=== PATIENT | female | born 1945 | race Asian ===

== ENCOUNTER 2019-06-16 09:49 | Emergency (ER) | payer OTHER ==
[2019-06-16 09:56] VITALS: BP 152/76; PULSE 86; TEMP 98.3; BMI 27.8
--- NOTE | 2019-06-16 10:32 | PDOC ---
History of Present Illness - General Chief Complaint: Injury Stated Complaint: LT.KNEE PAIN/ FALL Time Seen by Provider: 06/16/19 09:52 History Source: Patient - History of Present Illness Occurred: reports: this morning Lower Extremity Pain Location: left: knee Method of Injury: Yes: fell Past History - Past Medical History Allergies/Adverse Reactions: Allergies Allergy/AdvReac Type Severity Reaction Status Date / Time No Known Allergies Allergy Verified 06/16/19 09:54 Home Medications: Ambulatory Orders Cholecalciferol (Vitamin D3) [Vitamin D3 -] 1,000 unit PO DAILY 04/10/15 Valsartan [Diovan] 320 mg PO DAILY #30 tablet 09/15/15 Atorvastatin Ca [Lipitor] 40 mg PO HS 06/11/16 Empagliflozin [Jardiance] 10 mg PO DAILY 06/11/16 Glipizide 5 mg PO DAILY 06/11/16 Sitagliptin Phosphate [Januvia] 100 mg PO BID 06/11/16 metFORMIN HCL [Metformin HCl] 500 mg PO BID 06/11/16 Aspirin [ASA -] 81 mg PO DAILY #30 tab.chew 06/12/16 Wheat Dextrin [Benefiber] 1 each PO BID #0 powd.pack 06/12/16 Acetaminophen [Tylenol -] 1,000 mg PO Q6H #30 tablet 06/16/19 Anemia: Yes Asthma: No Cancer: Yes (RECTUM) Cardiac Disorders: No CVA: No COPD: No CHF: No Dementia: No Diabetes: Yes GI Disorders: Yes (COLON CANCER) Disorders: No HTN: Yes Hypercholesterolemia: Yes Liver Disease: No Seizures: No Thyroid Disease: No - Surgical History Abdominal Surgery: Yes (colon resection) Appendectomy: No Cardiac Surgery: No Cholecystectomy: No GI Surgery: Yes (COLORECTAL) Lung Surgery: No Neurologic Surgery: No Orthopedic Surgery: No - Immunization History Immunization Up to Date: Yes - Psycho Social/Smoking Cessation Hx Smoking Status: No Smoking History: Never smoked Have you smoked in the past 12 months: No Number of Cigarettes Smoked Daily: 0 Information on smoking cessation initiated: No Hx Alcohol Use: No Drug/Substance Use Hx: No Substance Use Type: None Hx Substance Use Treatment: No Review of Systems - Review of Systems Respiratory: No: Shortness of Breath Cardiac (ROS): No: Chest Pain Musculoskeletal: Yes: Joint Pain, Joint Swelling Neurological: No: Headache, Dizziness *Physical Exam - Vital Signs Last Vital Signs Temp Pulse Resp BP Pulse Ox 98.3 F 86 17 152/76 99 06/16/19 09:51 06/16/19 09:51 06/16/19 09:51 06/16/19 09:51 06/16/19 09:51 - Physical Exam General Appearance: Yes: Appropriately Dressed. No: Apparent Distress HEENT: positive: Normal Voice Neck: positive: Supple Respiratory/Chest: negative: Respiratory Distress Extremity: positive: Other (signifcant swelling to anterior L knee, ? effusion, FROMI, able to bear weight) Integumentary: positive: Dry, Warm Neurologic: positive: Fully Oriented, Alert, Normal Mood/Affect ED Treatment Course - RADIOLOGY Radiology Studies Ordered: Category Date Time Status KNEE 3 POS-LEFT [RAD] Stat Radiology 06/16/19 10:05 Ordered Medical Decision Making - Medical Decision Making 06/16/19 10:27 73-year-old female history of osteoporosis, DM, HLD, HTN, on asa, here w/ L knee pain and swelling after trip and fall this morning after leaving her eye appointment. States she struck L knee against the ground. No head injury, LOC , headache, dizziness, nausea or vomiting. No chest pain or dizziness prior to fall see exam L knee injury Soft tissue swelling on XR, no fx per radiologist SAMI bandage placed and dose of tylenol given in ED -Dc w/ RICE and ortho f/u as needed Discharge - Discharge Information Problems reviewed: Yes Clinical Impression/Diagnosis: Knee sprain Qualifiers: Encounter type: initial encounter Involved ligament of knee: unspecified ligament Laterality: left Qualified Code(s): S83.92XA - Sprain of unspecified site of left knee, initial encounter Condition: Good Disposition: HOME - Additional Discharge Information Prescriptions: Acetaminophen [Tylenol -] 1,000 mg PO Q6H #30 tablet - Follow up/Referral Referrals: Latosha Chaudhary MD [Primary Care Provider] - Keith Colbert MD [Staff Physician] - - Patient Discharge Instructions Patient Printed Discharge Instructions: DI for Knee Sprain Additional Instructions: You sustained a knee sprain. There is no fractures on x-ray. Keep Sami in place for swelling. Ice area and elevate extremity at home Take Tylenol as needed for pain. If pain swelling persist after 2 weeks, please follow-up with Dr. Colbert of orthopedics - Post Discharge Activity
[2019-06-16] MEDS ORDERED: ACETAMINOPHEN 325 MG TABLET (FP) PO ONE (10:34)
[2019-06-16] MEDS ORDERED: ACETAMINOPHEN 325 MG TABLET (FP) ONE (10:35)
== END 2019-06-16 10:43 | disposition home or self-care (01) ==
LOC: JERFT 09:49
DX: S83.8X2A Sprain of other specified parts of left knee, initial encounter (principal); W01.0XXA Fall on same level from slipping, tripping and stumbling without subsequent striking against object, initial encounter; Y93.89 Activity, other specified; Y92.531 Health care provider office as the place of occurrence of the external cause; Y99.8 Other external cause status; I10 Essential (primary) hypertension; E11.9 Type 2 diabetes mellitus without complications; E78.00 Pure hypercholesterolemia, unspecified; Z79.82 Long term (current) use of aspirin; D64.9 Anemia, unspecified; Z85.048 Personal history of other malignant neoplasm of rectum, rectosigmoid junction, and anus; Z85.038 Personal history of other malignant neoplasm of large intestine; M81.8 Other osteoporosis without current pathological fracture; Z90.49 Acquired absence of other specified parts of digestive tract
CPT/HCPCS: 73562-TC-LT-FY; 99281-25

== ENCOUNTER → 2021-05-28 | Day surgery (SDC) | payer OTHER, MEDICARE | END | disposition home or self-care (01) | LOC: JRADIR 09:50 | PROVIDERS: ATTEND Internal Medicine | PROC: 0G9G3ZX Drainage of Left Thyroid Gland Lobe, Percutaneous Approach, Diagnostic (ICD-10-PCS; principal; 2021-05-28) | DX: E04.1 Nontoxic single thyroid nodule (principal) | CPT/HCPCS: 10005; 76942; 88173; 88305-TC ==

== ENCOUNTER 2021-08-25 13:44 | Inpatient (IN) | payer OTHER ==
[2021-08-25 14:35] VITALS: BMI 27.8
[2021-08-25] MEDS ORDERED: LACTATED RINGERS SOLUTION 1000 ML INFUS.BAG IV ONE ×3 (15:45→17:37)
[2021-08-25 16:13] LABS: BASO % 0.9 % (0-2.0); EOS % 0.1 % (0-4.5); HEMATOCRIT 14.1 % (32.4-45.2); LYMPH % 13.2 % (8-40); MCHC 31.9 g/dl (32.0-36.0); MEAN PLT VOLUME 9.3 fl (7.5-11.1); MONO % 4.3 % (3.8-10.2); NEUT % 81.5 % (42.8-82.8); PLATELET COUNT 315 10^3/uL (134-434); RBC 1.55 M/mm3 (3.60-5.2); RDW 16.5 % (11.6-15.6); RETICULOCYTES 5.51 % (0.5-1.5); VENOUS BASE EXCESS -5.3 mmol/L (-2-2); VENOUS O2 SATURATION 92.5 % (70-80); VENOUS PCO2 36.4 mmHg (38-52); VENOUS PH 7.354 (7.310-7.410); WHITE BLOOD COUNT 17.8 K/mm3 (4.0-10.0)
[2021-08-25 16:18] LABS: INR 1.11 (0.83-1.09); PROTHROMBIN TIME (PATIENT) 12.8 SEC (9.7-13.0)
[2021-08-25 16:21] LABS: ACTIVATED PTT 22.2 SECONDS (25.2-36.5)
[2021-08-25 16:25] LABS: HEMOGLOBIN 4.5 GM/dL (10.7-15.3)
[2021-08-25 16:31] LABS: CHLORIDE 106 mmol/L (98-107); SODIUM 139 mmol/L (136-145)
[2021-08-25 16:33] LABS: ALBUMIN 3.2 g/dl (3.4-5.0); ANION GAP 14 MMOL/L (8-16); BLOOD UREA NITROGEN 31.8 mg/dL (7-18); CALCIUM 8.1 mg/dL (8.5-10.1); CO2 19 mmol/L (21-32); GLUCOSE,RANDOM 337 mg/dL (74-106)
[2021-08-25 16:36] LABS: CREATININE 0.8 mg/dL (0.55-1.3); IRON SERUM 119 ug/dL (50-175); TOTAL IRON BINDING CAPACITY 334 ug/dL (250-450)
[2021-08-25 16:37] LABS: SGOT/AST 9 U/L (15-37); SGPT/ALT 18 U/L (13-61)
[2021-08-25 16:38] LABS: BILIRUBIN,TOTAL 0.3 mg/dL (0.2-1); TOT PROT 6.3 g/dl (6.4-8.2)
[2021-08-25 16:39] LABS: ALK PHOS 48 U/L (45-117)
[2021-08-25 16:42] LABS: ANISOCYTOSIS 3+; MACROCYTOSIS 0; PLATELET ESTIMATE NORMAL; TARGET CELLS 2+
[2021-08-25 17:23] LABS: EPI CELLS 13 /uL (0-25.1); HYALINE CASTS 0 /uL (0-3.1); PH,URINE 5.5 (5.0-8.0); URINE APPEARANCE CLEAR; URINE BACTERIA 59 /uL (0-1359); URINE BILIRUBIN NEGATIVE (NEGATIVE); URINE COLOR YELLOW; URINE GLUCOSE (UA) 3+ (NEGATIVE); URINE KETONE NEGATIVE (NEGATIVE); URINE LEUK ESTERASE TRACE (NEGATIVE); URINE NITRITE NEGATIVE (NEGATIVE); URINE PROTEIN NEGATIVE (NEGATIVE); URINE RBC 4 /uL (0-23.9); URINE UROBILINOGEN 0.2 mg/dL (0.2-1.0); URINE WBC 153 /uL (0-25.8)
[2021-08-26 03:20] LABS: HEMATOCRIT 21.2 % (32.4-45.2); HEMOGLOBIN 7.2 GM/dL (10.7-15.3); MEAN CELL VOLUME 88.4 fl (80-96); MEAN PLT VOLUME 8.9 fl (7.5-11.1); PLATELET COUNT 261 10^3/uL (134-434); RBC 2.39 M/mm3 (3.60-5.2); RDW 14.6 % (11.6-15.6); WHITE BLOOD COUNT 17.1 K/mm3 (4.0-10.0)
[2021-08-26] MEDS: SODIUM CHLORIDE 1,000 ML IV SCH (04:23)
[2021-08-26 04:55] LABS: ANISOCYTOSIS 2+; MACROCYTOSIS 0; PLATELET ESTIMATE NORMAL; ROULEAU 1+
[2021-08-26] MEDS ORDERED: PANTOPRAZOLE SODIUM 40 MG in SODIUM CHLORIDE 100 ML IVPB SCH (10:00)
[2021-08-26] MEDS: PANTOPRAZOLE SODIUM 40 MG VIAL IVPUSH SCH ×2 (10:50→21:33)
[2021-08-26 11:33] LABS: HEMATOCRIT 21.7 % (32.4-45.2); HEMOGLOBIN 7.3 GM/dL (10.7-15.3); MCH 29.8 pg (25.7-33.7); MCHC 33.5 g/dl (32.0-36.0); MEAN PLT VOLUME 8.7 fl (7.5-11.1); PLATELET COUNT 308 10^3/uL (134-434); RBC 2.44 M/mm3 (3.60-5.2); RDW 14.7 % (11.6-15.6); WHITE BLOOD COUNT 17.2 K/mm3 (4.0-10.0)
[2021-08-26 12:10] LABS: CHLORIDE 108 mmol/L (98-107); SODIUM 141 mmol/L (136-145)
[2021-08-26 12:19] LABS: ALBUMIN 3.1 g/dl (3.4-5.0); ANION GAP 9 MMOL/L (8-16); CALCIUM 8.3 mg/dL (8.5-10.1); CO2 24 mmol/L (21-32); GLUCOSE,RANDOM 136 mg/dL (74-106); MAGNESIUM 1.6 mg/dL (1.8-2.4)
[2021-08-26 12:20] LABS: BLOOD UREA NITROGEN 19.3 mg/dL (7-18)
[2021-08-26 12:22] LABS: CHOLESTEROL 92 mg/dL (50-200); CREATININE 0.5 mg/dL (0.55-1.3); SGOT/AST 12 U/L (15-37); SGPT/ALT 16 U/L (13-61)
[2021-08-26 12:23] LABS: LDL CHOLESTEROL (ONLY SJRH) 46 mg/dL (5-100); PHOSPHOROUS 2.6 mg/dL (2.5-4.9); TRIGLYCERIDES 115 mg/dL (0-150)
[2021-08-26 12:24] LABS: BILIRUBIN,TOTAL 0.6 mg/dL (0.2-1)
[2021-08-26 12:25] LABS: ALK PHOS 43 U/L (45-117); HDL CHOLESTEROL 32 mg/dL (40-60)
[2021-08-26 12:43] LABS: ANISOCYTOSIS 1+; MACROCYTOSIS 0; PLATELET ESTIMATE NORMAL
[2021-08-26] MEDS: ACETAMINOPHEN 500 MG TABLET (FP) PO SCH ×2 (14:19→21:32)
[2021-08-26] MEDS: INSULIN SLIDING SCALE (NOVOLOG) 1 VIAL SQ SCH (18:11)
[2021-08-26] MEDS: ATORVASTATIN CA 40 MG TABLET (FP) PO SCH (21:33)
[2021-08-26 21:45] LABS: HEMOGLOBIN 7.5 GM/dL (10.7-15.3); MCH 29.9 pg (25.7-33.7); MCHC 32.4 g/dl (32.0-36.0); MEAN CELL VOLUME 92.4 fl (80-96); RBC 2.49 M/mm3 (3.60-5.2); RDW 15.5 % (11.6-15.6)
[2021-08-26 22:40] LABS: ANISOCYTOSIS 0; MACROCYTOSIS 0; ROULEAU 1+; TARGET CELLS 1+
[2021-08-26] MEDS ORDERED: PIPERACILLIN/TAZOB 3.375 GM 3.375 GM in DEXTROSE 5%-WATER - 50 ML IVPB SCH (22:45)
[2021-08-26] MEDS ORDERED: PIPERACILLIN/TAZOBACTAM 3.375 GM VIAL IVPB ONE (22:49)
[2021-08-26] MEDS ORDERED: DEXTROSE 5%-WATER - 50 ML IVPB ONE (22:50)
[2021-08-26] MEDS: PIPERACILLIN/TAZOB 3.375 GM 3.375 GM in DEXTROSE 5%-WATER - 50 ML IVPB SCH (22:55)
[2021-08-27] MEDS: ACETAMINOPHEN 500 MG TABLET (FP) PO SCH ×5 (01:51→21:24)
[2021-08-27] MEDS: PIPERACILLIN/TAZOB 3.375 GM 3.375 GM in DEXTROSE 5%-WATER - 50 ML IVPB SCH (06:44)
[2021-08-27] MEDS: SODIUM CHLORIDE 1,000 ML IV SCH (06:44)
[2021-08-27] MEDS: INSULIN SLIDING SCALE (NOVOLOG) 1 VIAL SQ SCH ×2 (06:49→16:36)
[2021-08-27 10:33] LABS: HEMATOCRIT 21.1 % (32.4-45.2); MCH 29.8 pg (25.7-33.7); MCHC 33.1 g/dl (32.0-36.0); MEAN PLT VOLUME 8.4 fl (7.5-11.1); PLATELET COUNT 340 10^3/uL (134-434); RBC 2.34 M/mm3 (3.60-5.2); WHITE BLOOD COUNT 13.1 K/mm3 (4.0-10.0)
[2021-08-27 11:01] LABS: CHLORIDE 106 mmol/L (98-107); SODIUM 141 mmol/L (136-145)
[2021-08-27 11:03] LABS: CALCIUM 8.4 mg/dL (8.5-10.1)
[2021-08-27 11:04] LABS: ALBUMIN 2.9 g/dl (3.4-5.0); ANION GAP 8 MMOL/L (8-16); BLOOD UREA NITROGEN 14.2 mg/dL (7-18); CO2 27 mmol/L (21-32); GLUCOSE,RANDOM 145 mg/dL (74-106)
[2021-08-27 11:07] LABS: CREATININE 0.6 mg/dL (0.55-1.3); SGOT/AST 11 U/L (15-37); SGPT/ALT 18 U/L (13-61)
[2021-08-27 11:08] LABS: TOT PROT 5.7 g/dl (6.4-8.2)
[2021-08-27] MEDS: VALSARTAN 160 MG TABLET PO SCH (11:08)
[2021-08-27] MEDS: PANTOPRAZOLE SODIUM 40 MG VIAL IVPUSH SCH (11:08)
[2021-08-27 11:09] LABS: BILIRUBIN,TOTAL 0.7 mg/dL (0.2-1)
[2021-08-27 11:10] LABS: ALK PHOS 44 U/L (45-117)
[2021-08-27] MEDS ORDERED: PANTOPRAZOLE SODIUM 80 MG in SODIUM CHLORIDE 100 ML IVPB SCH (12:00)
[2021-08-27 12:31] LABS: ANISOCYTOSIS 1+; MACROCYTOSIS 1+; PLATELET ESTIMATE NORMAL
[2021-08-27] MEDS: CHOLECALCIFEROL (VIT D3) 1,000 UNIT (25 MCG) TABLET PO SCH (12:33)
[2021-08-27] MEDS: PANTOPRAZOLE SODIUM 160 MG in SODIUM CHLORIDE 290 ML IVPB SCH (14:08)
[2021-08-27] MEDS: ATORVASTATIN CA 40 MG TABLET (FP) PO SCH (21:23)
[2021-08-28] MEDS: ACETAMINOPHEN 500 MG TABLET (FP) PO SCH ×4 (04:37→20:41)
[2021-08-28] MEDS: SODIUM CHLORIDE 1,000 ML IV SCH (04:37)
[2021-08-28] MEDS: INSULIN SLIDING SCALE (NOVOLOG) 1 VIAL SQ SCH ×2 (06:48→16:59)
[2021-08-28] MEDS: PANTOPRAZOLE SODIUM 160 MG in SODIUM CHLORIDE 290 ML IVPB SCH (09:01)
[2021-08-28] MEDS: CHOLECALCIFEROL (VIT D3) 1,000 UNIT (25 MCG) TABLET PO SCH (09:01)
[2021-08-28] MEDS: VALSARTAN 160 MG TABLET PO SCH (09:01)
[2021-08-28 09:47] LABS: HEMATOCRIT 24.7 % (32.4-45.2); HEMOGLOBIN 8.3 GM/dL (10.7-15.3); MCH 30.5 pg (25.7-33.7); MCHC 33.8 g/dl (32.0-36.0); MEAN CELL VOLUME 90.3 fl (80-96); MEAN PLT VOLUME 8.4 fl (7.5-11.1); PLATELET COUNT 318 10^3/uL (134-434); RBC 2.73 M/mm3 (3.60-5.2); RDW 15.5 % (11.6-15.6); WHITE BLOOD COUNT 10.6 K/mm3 (4.0-10.0)
[2021-08-28 10:23] LABS: ALBUMIN 2.8 g/dl (3.4-5.0); CALCIUM 8.3 mg/dL (8.5-10.1)
[2021-08-28 10:24] LABS: BLOOD UREA NITROGEN 11.6 mg/dL (7-18)
[2021-08-28 10:26] LABS: CREATININE 0.5 mg/dL (0.55-1.3)
[2021-08-28 10:28] LABS: BILIRUBIN,TOTAL 0.6 mg/dL (0.2-1); TOT PROT 5.6 g/dl (6.4-8.2)
[2021-08-28 12:26] LABS: ANISOCYTOSIS 1+; MACROCYTOSIS 0; PLATELET ESTIMATE NORMAL
[2021-08-28] MEDS ORDERED: IRON SUCROSE INJECTION 200 MG in SODIUM CHLORIDE 90 ML IVPB ONE (12:56)
[2021-08-28] MEDS: ATORVASTATIN CA 40 MG TABLET (FP) PO SCH (21:56)
[2021-08-28] MEDS: PANTOPRAZOLE 40 MG TABLET PO SCH (21:57)
[2021-08-29] MEDS: ACETAMINOPHEN 500 MG TABLET (FP) PO SCH ×3 (06:50→13:32)
[2021-08-29] MEDS: PANTOPRAZOLE 40 MG TABLET PO SCH (09:54)
[2021-08-29] MEDS: CHOLECALCIFEROL (VIT D3) 1,000 UNIT (25 MCG) TABLET PO SCH (09:55)
[2021-08-29] MEDS: VALSARTAN 160 MG TABLET PO SCH (10:03)
[2021-08-29 11:53] LABS: HEMATOCRIT 27.4 % (32.4-45.2); MCH 29.9 pg (25.7-33.7); MCHC 32.7 g/dl (32.0-36.0); MEAN CELL VOLUME 91.5 fl (80-96); MEAN PLT VOLUME 8.4 fl (7.5-11.1); PLATELET COUNT 382 10^3/uL (134-434); RETICULOCYTES 7.66 % (0.5-1.5); WHITE BLOOD COUNT 10.2 K/mm3 (4.0-10.0)
[2021-08-29] MEDS: INSULIN SLIDING SCALE (NOVOLOG) 1 VIAL SQ SCH (12:14)
[2021-08-29 12:31] LABS: BLOOD UREA NITROGEN 11.1 mg/dL (7-18); CALCIUM 8.4 mg/dL (8.5-10.1)
[2021-08-29 12:33] LABS: CREATININE 0.7 mg/dL (0.55-1.3)
[2021-08-29 13:25] LABS: ANISOCYTOSIS 0; HELMET CELLS 0; HOWELL-JOLLY BODIES 0; MACROCYTOSIS 0; OVALOCYTE 0; PLATELET ESTIMATE NORMAL; ROULEAU 0; SICKELED CELLS 0; TARGET CELLS 0; TEAR DROP CELLS 0; TOXIC GRANULATION 0
[2021-08-29 13:46] VITALS: BP 142/58; PULSE 78; TEMP 98.2
== END 2021-08-29 16:44 | disposition home or self-care (01) | DRG 378 ==
LOC: JER 13:44 → JERBED 19:39 → J6WEST-2 08-26 04:52
PROVIDERS: ADMIT Internal Medicine; ATTEND Internal Medicine
PROC: 30233N1 Transfusion of Nonautologous Red Blood Cells into Peripheral Vein, Percutaneous Approach (ICD-10-PCS; 2021-08-25)
PROC: 0DB68ZX Excision of Stomach, Via Natural or Artificial Opening Endoscopic, Diagnostic (ICD-10-PCS; principal; 2021-08-28 11:00)
DX: K26.4 Chronic or unspecified duodenal ulcer with hemorrhage (principal); E87.2 Acidosis; I44.2 Atrioventricular block, complete; I24.8 Other forms of acute ischemic heart disease; D64.9 Anemia, unspecified; I10 Essential (primary) hypertension; E78.5 Hyperlipidemia, unspecified; D72.829 Elevated white blood cell count, unspecified; K29.50 Unspecified chronic gastritis without bleeding
CPT/HCPCS: 36415; 36430; 36511; 71045-TC-FY; 74177-TC; 80048; 80053; 80061; 81003; 82272; 82550; 82607; 82728; 82746; 82803; 82962; 83036; 83540; 83550; 83605; 83735; 84100; 84443; 84484; 85025; 85045; 85610; 85730; 86850; 86900; 86901; 86922; 87040; 87086; 88305-TC; 93005; 93010; 93306-TC; 99285-25; C9803; J1756; P9038; P9058; Q9967; U0003; U0005

== ENCOUNTER 2021-10-31 05:41 | Day surgery (SDC) | payer OTHER ==
[2021-10-31 08:57] VITALS: BMI 26.3
[2021-10-31 10:36] VITALS: TEMP 97
[2021-10-31 10:45] VITALS: PULSE 78
[2021-10-31 11:32] VITALS: BP 120/62
== END 2021-10-31 12:15 | disposition home or self-care (01) ==
LOC: JASU-ENDO 05:41
PROVIDERS: ATTEND Internal Medicine Gastroenterology
PROC: 0DB98ZX Excision of Duodenum, Via Natural or Artificial Opening Endoscopic, Diagnostic (ICD-10-PCS; 2021-10-31)
PROC: 0DB68ZX Excision of Stomach, Via Natural or Artificial Opening Endoscopic, Diagnostic (ICD-10-PCS; 2021-10-31)
PROC: 0DBP8ZX Excision of Rectum, Via Natural or Artificial Opening Endoscopic, Diagnostic (ICD-10-PCS; principal; 2021-10-31 09:30)
DX: Z51.11 Encounter for antineoplastic chemotherapy (principal); Z85.038 Personal history of other malignant neoplasm of large intestine; Z98.0 Intestinal bypass and anastomosis status; E11.9 Type 2 diabetes mellitus without complications; I10 Essential (primary) hypertension; K29.40 Chronic atrophic gastritis without bleeding; K44.9 Diaphragmatic hernia without obstruction or gangrene
CPT/HCPCS: 82962; 88305-TC; 88342-TC

== ENCOUNTER → 2021-12-11 | Day surgery (SDC) | payer MEDICARE, OTHER | END | disposition home or self-care (01) | LOC: JRADIR 10:24 | PROVIDERS: ATTEND Internal Medicine Endocrinology, Diabetes & Metabolism | PROC: 0G9G3ZX Drainage of Left Thyroid Gland Lobe, Percutaneous Approach, Diagnostic (ICD-10-PCS; principal; 2021-12-11) | DX: E04.1 Nontoxic single thyroid nodule (principal) | CPT/HCPCS: 10005; 76942; 88173; 88305-TC ==

== ENCOUNTER → 2023-05-19 | Day surgery (SDC) | payer OTHER | END | disposition home or self-care (01) | LOC: JRADIR 09:46 | PROVIDERS: ATTEND Internal Medicine Endocrinology, Diabetes & Metabolism | PROC: 0G9H3ZX Drainage of Right Thyroid Gland Lobe, Percutaneous Approach, Diagnostic (ICD-10-PCS; principal; 2023-05-19) | DX: E04.1 Nontoxic single thyroid nodule (principal) | CPT/HCPCS: 10005; 76942; 88173; 88305-TC ==

== ENCOUNTER 2023-09-25 03:44 | Day surgery (SDC) | payer OTHER ==
[2023-09-22 13:11] VITALS: BMI 27.8
[2023-09-25] MEDS ORDERED: LIDOCAINE 1%/EPI 1:100000 (20 ML MULTI DOSE VIAL) ONE (07:24)
[2023-09-25] MEDS ORDERED: BUPIVACAINE HCL/PF 0.5% (5MG/ML) 10 ML VIAL ONE (07:30)
[2023-09-25] MEDS ORDERED: PROPOFOL 20 ML ONE ×2 (07:57→08:25)
[2023-09-25] MEDS ORDERED: SUCCINYLCHOLINE CHLORIDE 200 MG/10 ML SYRINGE ONE (07:58)
[2023-09-25] MEDS ORDERED: SODIUM CHLORIDE 0.9% P/F 10 ML VIAL IJ ONE (08:11)
[2023-09-25] MEDS: ceFAZolin SODIUM 1 GM VIAL IVPB ONE ×2 (08:34→08:37)
[2023-09-25] MEDS: LIDOCAINE 1%/EPI 1:100000 (50 ML MULTI DOSE VIAL) INF ONE (08:51)
[2023-09-25] MEDS: BUPIVACAINE HCL/PF 0.5% (5 MG/ML) 30 ML VIAL IJ ONE (08:51)
[2023-09-25] MEDS ORDERED: PROMETHAZINE HCL 25 MG/1 ML VIAL IVPB PRN (10:30)
[2023-09-25] MEDS: KETOROLAC TROMETHAMINE 30 MG/1 ML VIAL IVPUSH ONE (11:30)
[2023-09-25] MEDS: ACETAMINOPHEN 1000 MG/100 ML BAG IVPB ONE (11:35)
[2023-09-25] MEDS: LACTATED RINGERS SOLUTION 1,000 ML IV SCH ×2 (12:30→15:30)
[2023-09-25] MEDS ORDERED: CALCIUM CARBONATE 650 MG TABLET PO SCH (14:00)
[2023-09-25] MEDS: CALCIUM CARBONATE 650 MG TABLET PO SCH (15:02)
[2023-09-25] MEDS: CALCITRIOL 0.25 MCG CAPSULE (FP) PO SCH (15:02)
[2023-09-25] MEDS: INSULIN ASPART SLIDING SCALE (NOVOLOG) 1 VIAL SQ SCH (17:21)
[2023-09-25] MEDS: ACETAMINOPHEN 1000 MG/100 ML BAG IVPB PRN (20:58)
[2023-09-26 04:46] VITALS: RESP 18
[2023-09-26] MEDS: LEVOTHYROXINE NA 125 MCG TABLET (FP) PO SCH (06:37)
[2023-09-26] MEDS: VALSARTAN 40 MG TABLET PO SCH (09:43)
[2023-09-26 10:00] LABS: BASO % 0.9 % (0-2.0); EOS % 1.3 % (0-4.5); HEMATOCRIT 35.7 % (32.4-45.2); HEMOGLOBIN 11.7 GM/dL (10.7-15.3); LYMPH % 19.4 % (8-40); MCH 30.5 pg (25.7-33.7); MCHC 32.9 g/dl (32.0-36.0); MEAN CELL VOLUME 92.8 fl (80-96); MEAN PLT VOLUME 8.9 fl (7.5-11.1); MONO % 7.7 % (3.8-10.2); NEUT % 70.7 % (42.8-82.8); PLATELET COUNT 286 10^3/uL (134-434); RBC 3.84 M/mm3 (3.60-5.2); RDW 16.1 % (11.6-15.6); WHITE BLOOD COUNT 11.1 K/mm3 (4.0-10.0)
[2023-09-26 10:16] LABS: POTASSIUM 4.4 mmol/L (3.5-5.1)
[2023-09-26 10:21] LABS: BLOOD UREA NITROGEN 14.6 mg/dL (7-18); CALCIUM 9.5 mg/dL (8.5-10.1)
[2023-09-26 10:22] LABS: ALBUMIN 3.6 g/dl (3.4-5.0)
[2023-09-26 10:25] LABS: CREATININE 0.7 mg/dL (0.55-1.3)
[2023-09-26 10:26] LABS: BILIRUBIN,TOTAL 0.9 mg/dL (0.2-1); TOT PROT 7.2 g/dl (6.4-8.2)
[2023-09-26 11:10] VITALS: BP 137/57; PULSE 90; TEMP 98.9
[2023-09-26] MEDS: LACTATED RINGERS SOLUTION 1,000 ML/1,000 ML INFUS.BAG IV SCH (14:49)
[2023-09-26] MEDS ORDERED: ATORVASTATIN CA 40 MG TABLET (FP) PO SCH (22:00)
== END 2023-09-26 15:27 | disposition home or self-care (01) ==
LOC: JASU-SURG 03:44 → UNDOADMIN 13:29 → J2C 13:29 → J6S 16:32 → J2C 16:32 → J6S 16:32 → JASU-SURG 09-26 15:27
PROVIDERS: ATTEND Surgery
PROC: 0GTH0ZZ Resection of Right Thyroid Gland Lobe, Open Approach (ICD-10-PCS; 2023-09-25)
PROC: 0GTG0ZZ Resection of Left Thyroid Gland Lobe, Open Approach (ICD-10-PCS; 2023-09-25)
PROC: 0GTJ0ZZ Resection of Thyroid Gland Isthmus, Open Approach (ICD-10-PCS; 2023-09-25)
PROC: 0GTK0ZZ Resection of Thyroid Gland, Open Approach (ICD-10-PCS; principal; 2023-09-25 08:00)
DX: E04.2 Nontoxic multinodular goiter (principal)
CPT/HCPCS: 36415; 80048; 80053; 82962; 85025; 94760; J0131